=== PATIENT | female | born 1960 | race Caucasian/White ===

== ENCOUNTER 2022-08-26 18:47 | Emergency (ER) | payer OTHER, SELFPAY ==
[2022-08-26 19:06] VITALS: BP 135/79; PULSE 104; RESP 18; TEMP 37.4; O2SAT 97; BMI 17.0
--- NOTE | 2022-08-26 19:18 | ED_ITS ---
HPI - General Adult General Chief complaint: Fever Stated complaint: Intense head pressure, Nausea Time Seen by Provider: 08/26/22 18:57 Source: patient Mode of arrival: ambulatory Limitations: no limitations History of Present Illness HPI narrative: Patient is a healthy 61-year-old female who comes in with 48 hours of generally not feeling well. Some nausea but no fevers or chills. She was able to go to work yesterday but today her symptoms worsened with vomiting and dry heaves as well as pressure in her head. This feels different than a sinus infection. She has had no runny nose or cough. No pressure in her face but just generally in her entire head. Tylenol does help. She has been able to keep down some crackers but really no food for over 24 hours. No known exposure to influenza or COVID. No sore throat, ear pain, dizziness, chest pain, shortness of breath. She has had some abdominal soreness that she thinks is from vomiting. She is generally healthy with no chronic health problems. She takes no medications regularly. Related Data Previous Rx's Medication Instructions Recorded ondansetron 8 mg disintegrating 8 mg PO Q8H PRN nausea and 08/26/22 tablet vomiting #10 tabs Allergies Allergy/AdvReac Type Severity Reaction Status Date / Time No Known Drug Allergies Allergy Verified 08/26/22 19:08 Review of Systems Narrative: Review of systems is outlined above otherwise noted to be negative. Exam Const: Vital Signs, click to edit/add: Vital Signs - 24 hr 08/26/22 19:06 Temperature 99.3 F Pulse Rate [Right Pulse Oximeter] 104 H Respiratory Rate 18 Blood Pressure [Ri ght Upper Arm] 135/79 Pulse Oximetry 97 Oxygen Delivery Me thod Room Air Course Course Hospital Course: Patient was seen and examined. IV is established she is given a L of saline along with Zofran 4 mg IV. She denies a need for pain medication. With the IV fluids her head pressure rapidly resolved. Labs and a CT of her abdomen are ordered. Reevaluation(s) Reevaluation #1: She still has some nausea and is given Compazine 10 mg IV. Her her potassium is 3.1 she is given to 10 mEq IV doses. [place] [id number] but is otherwise normal. Basic metabolic panel is normal other than a potassium. Swabs for COVID and influenza are both negative. CT scan of her abdomen is unremarkable. Vital Signs Vital signs: Initial Vital Signs Temperature 99.3 F 08/26/22 19:06 Temperature Source Temporal Artery Scan 08/26/22 19:06 Pulse Rate 104 H 08/26/22 19:06 Respiratory Rate 18 08/26/22 19:06 Blood Pressure 135/79 08/26/22 19:06 Blood Pressure Mean 97 08/26/22 19:06 Blood Pressure Position Sitting 08/26/22 19:06 Pulse Oximetry 97 08/26/22 19:06 Oxygen Delivery Method 08/26/22 19:06 Vital Signs Temperature 99.3 F 08/26/22 19:06 Pulse Rate 104 H 08/26/22 19:06 Respiratory Rate 18 08/26/22 19:06 Blood Pressure 135/79 08/26/22 19:06 Pulse Oximetry 97 08/26/22 19:06 Oxygen Delivery Method 08/26/22 19:06 Temperature 99.3 F 08/26/22 19:06 Pulse Rate 104 H 08/26/22 19:06 Respiratory Rate 18 08/26/22 19:06 Blood Pressure 135/79 08/26/22 19:06 Pulse Oximetry 97 08/26/22 19:06 Oxygen Delivery Method 08/26/22 19:06 Medical Decision Making MDM Narrative Medical decision making narrative: I suspect that she has a viral illness causing headache and nausea. She is feeling better and is discharged with a prescription for Zofran that she can use. If she is not significantly improved over the next 2-3 days she should follow up in the clinic. She and her are comfortable with this plan. Lab Data Labs: Lab Results 08/26/22 08/26/22 08/26/22 Range/Units 19:34 19:40 19:40 WBC 15.26 H (4.50-11.00) K/uL RBC 4.23 (4.00-5.20) m/uL Hgb 12.4 (12.0-16.0) gm/dL Hct 36.9 (33.0-51.0) % MCV 87 (80-100) fL MCH 29 (26-34) pg MCHC 34 (32-36) gm/dL RDW Coeff of Carl 12.7 (11.5-15.5) % Plt Count 146 (140-440) K/uL Neut % (Auto) 81.1 H (42.0-72.0) % Lymph % (Auto) 7.5 L (20-44) % [place] % (Auto) 10.9 (0.0-11.0) % Eos % (Auto) 0.1 (0.0-7.0) % Baso % (Auto) 0.2 (0.0-3.0) % Neut # (Auto) 12.40 H (1.7-7.0) K/uL Lymph # (Auto) 1.10 (0.90-2.90) K/uL [place] # (Auto) 1.70 H (0.00-0.90) K/UL Eos # (Auto) 0.00 (0.00-0.50) K/uL Baso # (Auto) 0.00 (0.00-0.30) K/uL Sodium 136 (135-149) mmol/L Potassium 3.1 L (3.6-5.1) mmol/L Chloride 103 (96-114) mmol/L Carbon Dioxide 25 (20-32) mmol/L BUN 15 (7-30) mg/dL Creatinine 0.9 (0.5-1.5) mg/dL Estimated Creat Clear 38.07 Estimated GFR 73 ml/min Glucose 138 H (60-115) mg/dL Calcium 9.0 (8.4-10.6) mg/dL SARS-CoV-2 (PCR) Negative SARS-CoV-2 (Negative) Influenza Type A (PCR) Negative PCR FLU A (Negative) Influenza Type B (PCR) Negative PCR FLU B (Negative) Discharge Plan Discharge Clinical Impression: Viral infection Patient Disposition: Home, Self-Care Condition: Improved Additional Instructions: Rest, push fluids, bland diet. Take Tylenol for headaches, body aches, fever. Use Zofran for nausea. Follow-up in the clinic if not significantly improved over the next 48 hours. Prescriptions: New ondansetron 8 mg tablet,disintegrating 8 mg PO Q8H PRN (Reason: nausea and vomiting) Qty: 10 0RF Follow Up/Referrals: Vel Cooper MD [Primary Care Provider] - Stand Alone Forms: [facility] Info Instructions
[2022-08-26] MEDS: ONDANSETRON 2 MG/ML inj 4 MG IVP (19:47)
[2022-08-26] MEDS: 0.9 % SODIUM CHLORIDE 1000 ml 1,000 ML IV (19:47)
[2022-08-26 19:52] LABS: Basophils Percent Auto 0.2 % (0.0-3.0); Eosinophils Percent Auto 0.1 % (0.0-7.0); Hematocrit 36.9 % (33.0-51.0); Hemoglobin* 12.4 gm/dL (12.0-16.0); Immature Granulocytes Pct Auto 0.2 %; Lymphocytes Percent Auto 7.5 % (20-44); Mean Corpuscular HGB Conc 34 gm/dL (32-36); Mean Corpuscular Hemoglobin 29 pg (26-34); Mean Corpuscular Volume 87 fL (80-100); Monocytes Percent Auto 10.9 % (0.0-11.0); Neutrophils Percent Auto 81.1 % (42.0-72.0); Platelet Count* 146 K/uL (140-440); RDW Coefficient of Variation % 12.7 % (11.5-15.5); Red Blood Count 4.23 m/uL (4.00-5.20); White Blood Count* 15.26 K/uL (4.50-11.00)
[2022-08-26 19:54] LABS: Slide Review Reflex No
[2022-08-26 20:07] LABS: Chloride* 103 mmol/L (96-114); Potassium* 3.1 mmol/L (3.6-5.1); Sodium* 136 mmol/L (135-149)
[2022-08-26 20:09] LABS: Creatinine* 0.9 mg/dL (0.5-1.5); Est. Creatinine Clearance* 38.07; Estimated Glomerular Filt Rate 73 ml/min
[2022-08-26 20:10] LABS: Blood Urea Nitrogen* 15 mg/dL (7-30); Carbon Dioxide* 25 mmol/L (20-32); Glucose* 138 mg/dL (60-115)
[2022-08-26 20:27] LABS: PCR FLU A Negative PCR FLU A (Negative); PCR FLU B Negative PCR FLU B (Negative)
[2022-08-26 20:33] LABS: SARS PCR* Negative SARS-CoV-2 (Negative)
--- NOTE | 2022-08-26 20:52 | CRLHL7_ITS ---
For Patients: As a result of the Century Cures Act, medical imaging exams and procedure reports are released immediately into your electronic medical record. You may view this report before your referring provider. If you have questions, please contact your health care provider. INDICATION: Fever, vomiting, leukocytosis. TECHNIQUE: CT abdomen and pelvis acquired with 44 cc cc Isovue 370 IV contrast. COMPARISON: None. FINDINGS: Lower chest: Unremarkable. Liver: Unremarkable. Normal in size and attenuation. No suspicious masses. Gallbladder and bile ducts: Unremarkable. No stones or inflammation. No biliary ductal dilatation. Spleen: Unremarkable. Normal in size. No masses. Adrenal glands: Unremarkable. No nodules. Pancreas: Unremarkable. No mass or inflammation. Kidneys: Subcentimeter hypodense foci are too small to accurately characterize. Punctate nonobstructive calculus in the left renal lower pole collecting system. No hydronephrosis. GI tract: Unremarkable. Normal in caliber. Appendix not well visualized. Lymph nodes: No lymphadenopathy. Vasculature: Scattered atherosclerotic calcifications. Omentum/Peritoneum/Abdominal Wall: Unremarkable. No sign of mass or infiltration. No free air or significant free fluid. Pelvis: Unremarkable. Retroverted uterus. Bones: Unremarkable for age. IMPRESSION: No acute abdominal or pelvic abnormalities. Please note that all CT scans at this facility use dose modulation, iterative reconstruction, and/or weight-based dosing when appropriate to reduce radiation dose to as low as reasonably achievable. Dictated by Luis Beckham MD @ 08/26/2022 10:20:08 PM (Electronically Signed)
[2022-08-26] MEDS: POTASSIUM CHLORIDE 10 MEQ/100 ML PIGGYBACK 100 MEQ IVPB ×2 (20:53→22:16)
[2022-08-26] MEDS: PROCHLORPERAZINE 5 MG/ML VIAL 10 MG IV (22:38)
[2022-08-26 23:38] VITALS: BP 141/95; PULSE 96; RESP 16; TEMP 38.5
== END 2022-08-26 23:39 | disposition home or self-care (01) ==
PROVIDERS: Emergency Provider Family Medicine; PCP Family Medicine
DX: B34.9 Viral infection, unspecified (principal)
CPT/HCPCS: 36415; 74177; 80048; 85025; 87631; 96365; 96375; 99282; 99283; 99284; J0780; J2405; J3480; J7030; Q9967

== ENCOUNTER 2025-03-07 06:18 | Emergency (ER) | payer OTHER, SELFPAY ==
[2025-03-07 06:23] VITALS: BP 125/66; PULSE 61; RESP 16; TEMP 37.1; O2SAT 100; BMI 18.0
--- NOTE | 2025-03-07 06:52 | ED.GENADULT ---
HPI - General Adult General Chief complaint: Dizziness/Vertigo Stated complaint: Dizziness, nausea Time Seen by Provider: 03/07/25 06:25 Source: patient Mode of arrival: ambulatory Limitations: no limitations History of Present Illness HPI narrative: 64-year-old female presents to the emergency department for evaluation of room spinning type of dizziness. Started yesterday morning, initially upon wakening. Worse with initial movement but improved markedly through yesterday, started to come back in the evening last night and is much worse this morning. Symptoms do stop completely if she lays still on her right side with her eyes closed. Head movement immediately worsens symptoms but they do calm down again if she lies still. She has had nausea and vomiting with this. No trauma or injury. She is not anticoagulated. She has a low grade headache which she attributes to the vomiting yesterday, back of the head. No other neurological changes. No specific vision changes. No focal weakness in any part of the body. No speech changes. No known illness exposures. She reports no prior similar episodes like this but thinks that she had 1 a couple of years ago that they may be did not notice was vertigo like because they focused mainly on the vomiting. 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 Has not tried any home interventions to help with symptoms. No fever. No neck pain. No sick household contacts. No recent antibiotic use. Past medical history benign per her report with the exception of the childhood ear symptoms. No long-term medications, no allergies, nonsmoker. ROS is notable for there neurological and GI symptoms as above, otherwise denies times 12 systems. Related Data Previous Rx's ?Medication ?Instructions ?Recorded meclizine 25 mg tablet 25 mg PO BID-TID PRN 3 days #8 tabs 03/07/25 ondansetron 4 mg disintegrating 4 mg PO Q8H PRN nausea and 03/07/25 tablet vomiting #10 tabs prednisone 20 mg tablet 20 mg PO BID 3 days #6 tabs 03/07/25 Allergies Allergy/AdvReac Type Severity Reaction Status Date / Time No Known Drug Allergies Allergy Verified 08/26/22 19:08 Exam Const: Vital Signs, click to edit/add: Vital Signs - 24 hr 03/07/25 06:23 Temperature 98.8 F Pulse Rate [Pulse Oximeter] 61 Respiratory Rate 16 Blood Pressure [facility]] 125/66 Pulse Oximetry 100 Oxygen Delivery Me thod Room Air Documenting provider has reviewed patient's vital signs: yes Other: Appears mildly ill but answers questions appropriately. HENMT: Common normals: normocephalic, oropharynx normal and dentition normal Head and scalp: normocephalic Other: Face symmetric. Left TM appears normal. Right TM is scarred and retracted, consistent with history and does appear to have some dry skin blocking as well. No obvious bleeding or purulent drainage or redness or tenderness. Eye: Common normals: PERRL and EOMs intact bilaterally Pupil: PERRL Other: Left beating horizontal nystagmus on exam, just a couple of beats. Reproducible with head movements. [place]-Hallpike maneuver positive. Neck & C-Spine: Common normals: full ROM and no lymphadenopathy General: normal visual inspection Resp: Common normals: normal respiratory effort and clear to auscultation bilaterally Effort & inspection: able to speak in complete sentences Auscultation: clear to auscultation bilaterally Cardio: Common normals: regular rate, regular rhythm, S1 normal heart sound, S2 normal heart sound and no murmurs Rate: regular rate Rhythm: regular rhythm Heart sounds: S1 normal and S2 normal GI: Common normals: Normal to inspection, nondistended, normoactive bowel sounds present, soft to palpation, non-tender, no hepatosplenomegaly and no masses Palpation: soft and no hepatosplenomegaly Extremity: Common normals: normal to inspection, normal capillary refill and no pedal edema Neuro: Common normals: CN's II-XII intact bilaterally, moves all extremities and no focal motor deficits Speech: speech normal Motor exam: no tremor noted Psych: Appearance: grossly normal Attitude: engaged Activity/motor behavior: appropriate eye contact Insight: insight good Judgement: judgment good Skin: Common normals: no rashes or lesions noted General skin exam: no rashes or lesions noted Course Course ED Course: [age] for a female with vertigo type dizziness that does seem to be peripheral rather than central source. No signs that this is a posterior circulation CVA. CT had not recommended. Jesus-Hallpike maneuver is positive. Seems to be left sided. Counseled patient on exam findings. Do not recommend CT at this time. Recommend place peripheral IV. Discussed expectations that typically with interventions in the emergency room we can make things about half better. Will give 1 L of normal saline, 25 mg meclizine, 8 of Zofran and 40 mg of Solu-Medrol. Will plan to discharge on 3 days of prednisone and meclizine with outpatient or ENT follow-up if not resolved. Counseled patient that repeat episodes can be common. She had some prodromal symptoms yesterday. It would have been ideal if she could have started some meclizine at the onset of those symptoms to help reduce the severity and duration of symptoms in the future. Will give prescriptions for meclizine, Zofran and prednisone with the intent that she can have the additional medications on hand for future flares. Alarm symptoms were reviewed that would warrant ED interventions such as stroke-like symptoms, persistent vision changes, etc.. Reevaluation(s) Time of Reevaluation #1: 08:23 Reevaluation #1: Patient is feeling quite a bit better after the Zofran though not completely improved. Labs are reassuring. Counseled that unfortunately the next step is that we need time for the steroids to kick in and for the medicines to work. She will finish up her IV fluids and be discharged home to rest. Repeat doses of meclizine and prednisone and Zofran at 3:00 p.m. advised. Prescription sent to pharmacy. Three day course of prednisone, meclizine p.r.n. and Zofran p.r.n.. If not markedly better in 48 hours, make a follow-up appointment in the clinic or urgent care the next day. Consider ENT consult if not improving. Alarm symptoms such as those that would be worrisome for stroke were reviewed as indications to come back to the ED. Home Karthikeyan maneuver printout given for left ear. Vital Signs Vital signs: Initial Vital Signs Temperature 98.8 F 03/07/25 06:23 Temperature Source Temporal Artery Scan 03/07/25 06:23 Pulse Rate 61 03/07/25 06:23 Respiratory Rate 16 03/07/25 06:23 Blood Pressure 125/66 03/07/25 06:23 Blood Pressure Mean 85 03/07/25 06:23 Blood Pressure Position Semi-Fowlers 03/07/25 06:23 Pulse Oximetry 100 03/07/25 06:23 Oxygen Delivery Method Room Air 03/07/25 06:23 Vital Signs Temperature 98.8 F 03/07/25 06:23 Pulse Rate 61 03/07/25 06:23 Respiratory Rate 16 03/07/25 06:23 Blood Pressure 125/66 03/07/25 06:23 Pulse Oximetry 100 03/07/25 06:23 Oxygen Delivery Method Room Air 03/07/25 06:23 Temperature 98.8 F 03/07/25 06:23 Pulse Rate 61 03/07/25 06:23 Respiratory Rate 16 03/07/25 06:23 Blood Pressure 125/66 03/07/25 06:23 Pulse Oximetry 100 03/07/25 06:23 Oxygen Delivery Method Room Air 03/07/25 06:23 Medications Administered Medications: Discontinued Medications Generic Name Dose Route Start Last Admin Trade Name Freq PRN Reason Stop Dose Admin Sodium Chloride 1,000 mls @ 1,000 mls/hr 03/07/25 06:44 03/07/25 07:26 0.9 % Sodium Chloride 1000 Ml IV 03/07/25 07:43 1,000 mls/hr .Q1H JAVI Administration Meclizine HCl 25 mg 03/07/25 06:43 03/07/25 07:59 Meclizine Hcl 25 Mg Tablet PO 03/07/25 06:44 25 mg ONCE ONE Administration Methylprednisolone Sodium Succinate 40 mg 03/07/25 06:43 03/07/25 07:29 Methylprednisolone Sod Succ 40 Mg/Ml IVP 03/07/25 06:44 40 mg ONCE ONE Administration Ondansetron HCl 8 mg 03/07/25 06:43 03/07/25 07:27 Ondansetron 2 Mg/Ml Inj IVP 03/07/25 06:44 8 mg ONCE ONE Administration Medical Decision Making Lab Data Lab results reviewed: Yes I reviewed the patient's lab results Lab results narrative: Labs are essentially reassuring. Normal hemoglobin, no leukocytosis. Borderline bilirubin but not suggestive of obstructive process. Creatinine normal. Lipase normal. Labs: Lab Results 03/07/25 Range/Units 07:03 WBC 9.47 (4.50-11.00) K/uL RBC 4.77 (4.00-5.20) m/uL Hgb 14.1 (12.0-16.0) gm/dL Hct 42.5 (33.0-51.0) % MCV 89 (80-100) fL MCH 30 (26-34) pg MCHC 33 (32-36) gm/dL RDW Coeff of Carl 12.1 (11.5-15.5) % Plt Count 176 (140-440) K/uL Neut % (Auto) 76.4 H (42.0-72.0) % Lymph % (Auto) 16.2 L (20-44) % [place] % (Auto) 6.3 (0.0-11.0) % Eos % (Auto) 0.5 (0.0-7.0) % Baso % (Auto) 0.5 (0.0-3.0) % Neut # (Auto) 7.20 H (1.7-7.0) K/uL Lymph # (Auto) 1.50 (0.90-2.90) K/uL [place] # (Auto) 0.60 (0.00-0.90) K/UL Eos # (Auto) 0.05 (0.00-0.50) K/uL Baso # (Auto) 0.05 (0.00-0.30) K/uL Abs Immat Gran (auto) 0.01 (0.00-0.30) K/uL Imm/Tot Granulo (auto) 0.1 % Sodium 138 (135-149) mmol/L Potassium 3.7 (3.6-5.1) mmol/L Chloride 102 (96-114) mmol/L Carbon Dioxide 29 (20-32) mmol/L Anion Gap 7 (7-15) mEq/L BUN 15 (7-30) mg/dL Creatinine 0.8 (0.5-1.5) mg/dL Estimated Creat Clear 37.44 Estimated GFR 82 ml/min Glucose 99 (60-115) mg/dL Calcium 9.5 (8.4-10.6) mg/dL Total Bilirubin 1.9 H (0.1-1.5) mg/dL AST 28 (12-35) U/L ALT 16 (4-35) U/L Alkaline Phosphatase 89 (40-150) U/L C-Reactive Protein 0.5 (0.5-1.0) mg/dL Total Protein 7.7 (6.0-8.3) g/dL Albumin 4.6 (3.3-5.0) g/dL Lipase 43 (23-300) U/L Discharge Plan Discharge Clinical Impression: Benign paroxysmal positional vertigo Patient Disposition: Home w/ Parent or Adult Condition: Stable Instructions: Benign Paroxysmal Positional Vertigo (DC) Additional Instructions: As we discussed, these episodes of vertigo can be quite debilitating. Your exam was suggested that yours is coming from what we call a peripheral rather than a central source. This means that it was a miscommunication between the eyes, ears and the brain, typically from inflammation in the ear. Ear exam is suggested though not confirmatory that the inflammation is coming from the nerves that feed the balance centers in the left ear. Unfortunately medicines will not make your symptoms go away completely. We elected to treat with IV fluids, steroids and an anti nausea medication. We also treat with a medicine called meclizine. The meclizine is also sold [id number] as Dramamine nondrowsy. For most people, the meclizine and prednisone can improve symptoms somewhat while the inflammation gradually goes away. I recommend taking another dose of meclizine this afternoon at around 3, then decreasing to just every 8 hours as needed. Do not use for more than 3 days. I also recommend another dose of the steroid, prednisone at about 3:00 p.m. tonight. You will take another dose of the prednisone tomorrow morning, and then again tomorrow afternoon. For most people, the symptoms have markedly improved after a couple days of treatment. If that is the case for you, you may discontinue the medicines. If you are still symptomatic take for a 3rd day as well. If your symptoms have not improved markedly after 3 days, make a follow-up appointment with her primary care provider or our ENT department for further guidance. If you have stroke-like symptoms, you should return to the emergency room. No driving until you have been completely symptom-free for 12 hours. Activity Level: Activity as Tolerated Discharge Diet: Regular Prescriptions: New meclizine 25 mg tablet 25 mg PO BID-TID PRN3 Days Qty: 8 1RF prednisone 20 mg tablet 20 mg PO BID 3 Days Qty: 6 0RF ondansetron 4 mg tablet,disintegrating 4 mg PO Q8H PRN (Reason: nausea and vomiting) Qty: 10 0RF Stand Alone Forms: [facility] Info Instructions
[2025-03-07 07:20] LABS: Hematocrit* 42.5 % (33.0-51.0); Hemoglobin* 14.1 gm/dL (12.0-16.0); Immature Granulocytes Abs Auto 0.01 K/uL (0.00-0.30); Immature Granulocytes Pct Auto 0.1 %; Mean Corpuscular HGB Conc 33 gm/dL (32-36); Mean Corpuscular Hemoglobin 30 pg (26-34); Mean Corpuscular Volume 89 fL (80-100); RDW Coefficient of Variation % 12.1 % (11.5-15.5); Red Blood Count* 4.77 m/uL (4.00-5.20); White Blood Count* 9.47 K/uL (4.50-11.00)
[2025-03-07 07:21] LABS: Lymphocytes Absolute Auto 1.50 K/uL (0.90-2.90); Slide Review Reflex No
[2025-03-07] MEDS: ONDANSETRON 2 MG/ML inj 8 MG IVP (07:27)
[2025-03-07 07:30] LABS: Albumin* 4.6 g/dL (3.3-5.0); Chloride* 102 mmol/L (96-114); Sodium* 138 mmol/L (135-149)
[2025-03-07 07:31] LABS: Potassium* 3.7 mmol/L (3.6-5.1)
[2025-03-07 07:33] LABS: Alanine Aminotransferase* 16 U/L (4-35); Alkaline Phosphatase* 89 U/L (40-150); Anion Gap 7 mEq/L (7-15); Aspartate Amino Transferase* 28 U/L (12-35); Bilirubin Total* 1.9 mg/dL (0.1-1.5); Blood Urea Nitrogen* 15 mg/dL (7-30); Carbon Dioxide* 29 mmol/L (20-32); Creatinine* 0.8 mg/dL (0.5-1.5); Est. Creatinine Clearance* 37.44; Estimated Glomerular Filt Rate 82 ml/min; Total Protein* 7.7 g/dL (6.0-8.3)
[2025-03-07 07:34] LABS: Calcium* 9.5 mg/dL (8.4-10.6); Glucose* 99 mg/dL (60-115)
[2025-03-07] MEDS: MECLIZINE HCL 25 MG TABLET PO (07:59)
[2025-03-07 08:39] VITALS: BP 114/58; PULSE 58; RESP 16; O2SAT 99
== END 2025-03-07 08:48 | disposition home or self-care (01) ==
PROVIDERS: Emergency Provider Family Medicine; PCP Family Medicine
DX: H81.12 Benign paroxysmal vertigo, left ear (principal)
CPT/HCPCS: 36415; 80053; 83690; 85025; 86140; 96361; 96374; 99284; A9270; J2405; J2919; J7030